=== PATIENT | male | born 1930 | race Caucasian/White ===

== ENCOUNTER → 2016-04-22 | Outpatient (CLI) | payer MEDICARE, OTHER ==
--- NOTE | 2016-04-22 15:50 | MRI ---
EXAM DESCRIPTION: MR LUMBAR SPINE WITHOUT IV CONTRAST CLINICAL HISTORY: LOWER BACK PAIN fall, injury, low back pain, dementia, prior history of colon cancer COMPARISON: None Available. TECHNIQUE: Multi plantar multi sequence non contrast imaging. FINDINGS: There is good alignment of the lumbar spine. There is no vertebral pathology. No extra spinous abnormality is detected. L1-2: Unremarkable. L2-3: Unremarkable. L3-4: The disc is desiccated. Mild anterior vertebral body osteophyte formation is observed. Mild facet joint arthritis is seen. No neural foraminal disease of significance is detected. L4-5: Unremarkable. Mild facet joint arthritis is observed. L5-S1: No significant disk bulge or disk herniation is seen. The neural foramina are preserved. Marked facet joint arthritis is seen. IMPRESSION: Facet joint arthritis is observed most pronounced at the L5-S1 level. No significant compromise of the subarachnoid space or exiting nerve roots is detected. Electronically signed by: Chuckie Florez MD 04/22/2016 15:48
== END ==
LOC: MRI 13:18
PROVIDERS: ATTEND Family Medicine
DX: M46.97 Unspecified inflammatory spondylopathy, lumbosacral region (principal)

== ENCOUNTER → 2016-06-05 | Outpatient (CLI) | payer MEDICARE | END | disposition home or self-care (01) | LOC: GMAM 13:37 | PROVIDERS: ATTEND Family Medicine | DX: Z85.46 Personal history of malignant neoplasm of prostate (principal); F03.90 Unspecified dementia, unspecified severity, without behavioral disturbance, psychotic disturbance, mood disturbance, and anxiety | CPT/HCPCS: 84439; 84443; G0103 ==

== ENCOUNTER → 2016-09-25 | Outpatient (CLI) | payer MEDICARE, OTHER | LOC: GMAM 16:50 | PROVIDERS: ATTEND Family Medicine | DX: R23.3 Spontaneous ecchymoses (principal); I10 Essential (primary) hypertension ==

== ENCOUNTER 2017-04-30 11:57 | Emergency (ER) | payer MEDICARE, OTHER ==
[2017-04-30 12:15] VITALS: TEMP 97.5
--- NOTE | 2017-04-30 12:18 | ED.PDOC ---
History of Present Illness - General Chief Complaint: Trauma Stated Complaint: fall Time Seen by Provider: 04/30/17 12:17 Source: patient, EMS notes reviewed Exam Limitations: clinical condition - History of Present Illness Initial Comments: Asif Pagan 86 y/o male brought by ems after they were called on this gentlemen stated while he was to go walk after getting up from bed slipped lost his balance fell landed on his buttocks on the floor.Denies head and neck pain remembers incident.family members and ems help him to stand up.Has dull ache on both hips but no shortening of the legs. Occurred: just prior to arrival Injuries/Pain Location: pelvis, lower extremity - both hips Reason for Fall: lost balance, slipped Loss of Consciousness: no loss of consciousness Improving Factors: rest Worsening Factors: movement Associated Symptoms (Fall): denies symptoms Allergies/Adverse Reactions: Allergies NO KNOWN ALLERGY Allergy (Verified 04/30/17 12:15) Home Medications: Ambulatory Orders Nsbssemtvxnyk-Sybj-Utuhqshxqr [Fioricet] 1 ea PO Q8H PRN #21 tab 04/11/15 Aspirin [Aspirin Adult Low Dose] 81 mg PO DAILY 04/11/15 Review of Systems - Review of Systems Constitutional: States: no symptoms reported EENTM: States: no symptoms reported Respiratory: States: no symptoms reported Cardiology: States: no symptoms reported Gastrointestinal/Abdominal: States: no symptoms reported Genitourinary: States: no symptoms reported Musculoskeletal: States: see HPI Skin: States: no symptoms reported Neurological: States: no symptoms reported All other Systems: Reviewed and Negative, No Change from Baseline Past Medical History (General) - Patient Medical History Hx Congestive Heart Failure: No Hx Hypertension: Yes Hx Diabetes: No Hx Cancer: Yes - Colon Hx Other PMH: Yes - dementia Surgical History: appendectomy, other - partial colectomy - Vaccination History Hx Influenza Vaccination: No Hx Pneumococcal Vaccination: No - Social History Hx Tobacco Use: No Hx Alcohol Use: No Hx Physical Abuse: No Hx Emotional Abuse: No Hx Suspected Abuse: No - Activities of Daily Living Patient Lives Alone: No - 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 Ability: Independent Eating (Feeding) Ability: Independent Toileting Ability: Independent Physical Exam - Physical Exam General Appearance: Alert, Comfortable, No apparent distress Head Injury: no evidence of injury Eye Exam: bilateral normal ENT Exam: hearing grossly normal, no evidence of ENT injury, no dental injury Peripheral Pulses: radial,right: 2+, radial,left: 2+ Cardiovascular/Respiratory: regular rate, rhythm, no M/R/G, normal peripheral pulses, normal breath sounds Gastrointestinal/Abdominal: normal bowel sounds, non tender, soft, no organomegaly Back Exam: normal inspection, no CVA tenderness, no vertebral tenderness Extremity Exam: pelvis stable, bony-point tenderness - both hips, tenderness - pelvis Neurologic: no motor/sensory deficits, alert, oriented x 3 Skin Exam: normal color, warm/dry - Tone Coma Score Best Eye Response (Gordon): (4) open spontaneously Best Verbal Response (Tone): (5) oriented Best Motor Response (Gordon): (6) obeys commands Gordon Total: 15 Progress - Progress Progress: 04/30/17 12:31 Last Vital Signs Temp 97.5 F L 04/30/17 12:04 Pulse 57 L 04/30/17 12:04 Resp 20 04/30/17 12:04 BP 155/79 04/30/17 12:04 Pulse Ox 96 04/30/17 12:04 - Results/Orders Results/Orders: Laboratory Tests 04/30/17 04/30/17 12:30 13:35 WBC 3.5 L RBC 3.77 L Hgb 12.8 L Hct 38.5 L MCV 102.1 H MCH 33.9 H MCHC 33.1 RDW 13.5 Plt Count 113 L MPV 7.9 Absolute Neuts (auto) 1.90 Absolute Lymphs (auto) 1.20 Absolute Monos (auto) 0.40 Absolute Eos (auto) 0.10 Absolute Basos (auto) 0.00 Neutrophils % 52.6 Lymphocytes % 33.8 Monocytes % 11.5 H Eosinophils % 1.4 Basophils % 0.7 PT 11.9 INR 1.050 PTT (SP) 27.8 Sodium 141 Potassium 3.7 Chloride 106 Carbon Dioxide 29 Anion Gap 9.7 L BUN 18 Creatinine 0.95 BUN/Creatinine Ratio 18.9 Random Glucose 100 Serum Osmolality 283.2 Calcium 9.0 Magnesium 2.1 Creatine Kinase 262 H* CK-MB (CK-2) 2.6 Troponin I < 0.02 Urine Color Yellow Urine Appearance Clear Urine pH 8.5 H Ur Specific [place] 1.020 Urine Protein Negative Urine Glucose (UA) Negative Urine Ketones Negative Urine Blood Negative Urine Nitrite Negative Urine Bilirubin Negative Urine Urobilinogen 0.2 Ur Leukocyte Esterase Negative Urine RBC 1-3 Urine WBC 1-3 Ur Epithelial Cells 0-1 Urine Bacteria Rare - EKG/XRAY/CT EKG: [place], Sinus, no ST T wave changes Comments: Heart rate-50 CT Ordered: Yes - hip pelvis-no fracture;bilateral hip arthrosis Departure - Departure Clinical Impression: Bilateral buttock pain, History of dementia, History of colon cancer Fall Qualifiers: Encounter type: initial encounter Qualified Code(s): W19.XXXA - Unspecified fall, initial encounter Contusion, buttock Qualifiers: Encounter type: initial encounter Qualified Code(s): S30.0XXA - Contusion of lower back and pelvis, initial encounter Time of Disposition: 14:58 Disposition: Discharge to SNF Condition: Fair Departure Forms: ED Discharge - Pt. Copy, Patient Portal Self Enrollment Activity: ambulate only with walker Referrals: Victor Hugo Sepulveda MD [Primary Care Provider] - 1-2 Weeks Home Medications: Ambulatory Orders Cvuovqhuaacvx-Vwbd-Ihcocahqzg [Fioricet] 1 ea PO Q8H PRN #21 tab 04/11/15 Aspirin [Aspirin Adult Low Dose] 81 mg PO DAILY 04/11/15 Additional Instructions: Continue with all home medications
--- NOTE | 2017-04-30 13:47 | CT ---
EXAM DESCRIPTION: Pelvis . Computer tomography. CLINICAL HISTORY: right hip pain COMPARISON: Radiographs of the pelvis and hips on the same visit. TECHNIQUE: Spiral, axial 2.0 mm scans through the pelvis and hips without contrast. Coronal and sagittal 2.0 mm reconstructions. Total Exam DLP: 392.82 mGy-cm. This exam was performed according to our departmental CT dose-optimization program which includes automated exposure control, adjustment of the mA and/or kV according to patient size and/or use of iterative reconstruction technique; to reduce radiation dose to as low as reasonably achievable (ALARA). FINDINGS: Overall decreased bone density. Minimal narrowing of the superior lateral right hip joint space. Atrophic superior-lateral right acetabular metastases small bone density which is well-corticated. No acetabular fracture. Flattening of the normal convexity of the superior lateral right humeral head. Marginal spurs on the posterior lateral humeral head and the posterior medial humeral head. No radiodense loose bodies in the right hip joint space. Posterior subchondral acetabular radiolucencies. No fracture in the femoral head femoral neck intertrochanteric region of the subtrochanteric region. Enthesophytes on the greater and lesser trochanter. Proximal femur unremarkable. Left acetabulum has similar appearance as the right acetabulum; subcentimeter corticated bone density abutting the anterior superior acetabulum. Marginal spurs on the left humeral head normal convexity. Enthesophytes on the greater and lesser trochanter on the left. Minimal superior joint space narrowing but no loose bodies. Left femoral head femoral neck and trochanteric region and subtrochanteric femur intact. Minimal hypertrophic changes in the bilateral SI joint margins. No destructive lesions in the sacrum or coccyx. No fractures. Bilateral L4-5 and L5-S1 facet hypertrophic changes and spondylosis L4-5. Question of an interbody partially calcified fusion device in the right disc space Prechemotherapy seeds in the region of the prostate gland. Bilateral vascular calcifications. No fluid in the anterior peritoneal reflection in the pelvic cavity. Ectasia of the bilateral proximal common iliac arteries. No gross pelvic mass.. IMPRESSION: 1. No pelvic sacral or coccyx fracture. No loose bodies. 2. Bilateral hip arthrosis with minimal joint space narrowing. Marginal spurs. Mild flattening of the normal convexity of the superior lateral right femoral head may be due to femoral acetabular impingement. Electronically signed by: Randy Moran MD 04/30/2017 1:46 PM ADULT EDUCATION MANAGER
[2017-04-30 16:00] VITALS: BP 140/72; O2SAT 97
== END 2017-04-30 16:01 ==
LOC: ER 11:57
DX: S30.0XXA Contusion of lower back and pelvis, initial encounter (principal); F03.90 Unspecified dementia, unspecified severity, without behavioral disturbance, psychotic disturbance, mood disturbance, and anxiety; I10 Essential (primary) hypertension; Z85.038 Personal history of other malignant neoplasm of large intestine; W06.XXXA Fall from bed, initial encounter; Y92.89 Other specified places as the place of occurrence of the external cause

== ENCOUNTER → 2017-06-25 | Outpatient (CLI) | payer MEDICARE, OTHER ==
--- NOTE | 2017-06-25 13:40 | US ---
EXAM DESCRIPTION: Testicular: Ultrasound. CLINICAL HISTORY: TESTICULAR PAIN COMPARISON: None. TECHNIQUE: Transcutaneous scanning ; two-dimensional and Doppler modes. FINDINGS: Dimensions of the right testicle are 3.0 x 1.7 x 1.5 cm, with normal echogenicity and normal color Doppler flow. Epididymal head measures 10 x 9 x 5.2 mm, with 5.7 mm cyst. Otherwise normal echogenicity and normal color Doppler flow. No scrotal wall thickening. Small Hydrocele. Dimensions of the left testicle are 2.5 x 2.0 x 1.0 cm, with normal echogenicity and normal color Doppler flow. Epididymal head measures 10 x 8.5 x 6.3 mm, with normal echogenicity and normal color Doppler flow. No scrotal wall thickening. Small varicocele in the posterior scrotum Small Hydrocele. IMPRESSION: 1. Normal vascularity of the testicles and epididymis. Heterogeneous echoes. 2. Epididymides are large but symmetric bilaterally. Small right epididymal head cyst. 3. Bilateral small hydroceles. Small varicocele posterior left scrotum. Electronically signed by: Randy Moran MD 06/25/2017 1:39 PM CDT
== END ==
LOC: US 06-17 10:26
PROVIDERS: ATTEND Family Medicine
DX: N44.8 Other noninflammatory disorders of the testis (principal); N43.3 Hydrocele, unspecified; M79.605 Pain in left leg

== ENCOUNTER 2017-07-27 12:27 | Emergency (ER) | payer MEDICARE, OTHER ==
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
[2017-07-27] MEDS ORDERED: CHLORHEXIDINE GLUCONATE 4 % 15 ML UD TOP ONE (12:47)
[2017-07-27] MEDS ORDERED: LIDOCAINE 1% 10 ML VIAL INJ ONE ×2 (12:54→13:03)
[2017-07-27 19:45] VITALS: TEMP 97.8
[2017-07-27 20:08] VITALS: BP 131/71; O2SAT 97
== END 2017-07-27 16:25 ==
LOC: ER 12:27
DX: S61.412A Laceration without foreign body of left hand, initial encounter (principal); I10 Essential (primary) hypertension; Z85.038 Personal history of other malignant neoplasm of large intestine; Z23 Encounter for immunization; Y08.89XA Assault by other specified means, initial encounter; Y92.129 Unspecified place in nursing home as the place of occurrence of the external cause